=== PATIENT | female | born 1940 | race Caucasian/White ===

== ENCOUNTER → 2016-07-28 | Outpatient (CLI) | payer MEDICARE, MEDICAID ==
[~2016-07-28] MED LIST: /CIPR75TA OR; /WARF4TA OR; ACET-71 PO; ACET65TA OR; ALOE PO; ASCO500T PO; ASPE10LO TOP; ASPI325T OR; ASPI81TA31 OR; ASPI81TA85 PO; BEN1.4DI TOP; BONIVA PO; CALC600T7 PO; CALCIUM CITRATE PO; CHLO125TA PO; CIPR500T3 PO; CIPR500T89 PO; COLA100C PO; D 501TAB PO; DIGO0.12 PO; DIOV40TA PO; FLAG500T OR; FOSA70TA PO; FURO20TA2 PO; HYDR1TAB97 PO; HYDR25TA6 OR; HYDR25TAB PO; IMOD2TAB14 PO; KLOR1TAB69 PO; LASI20TA PO; LEVA750T PO; LEVO25TA2 OR; LEVO75TA2 OR; LEVO75TA4 PO; LIPI20TA OR; LISI10TA4 OR; LISI2.5T OR; LISI40TAB PO; LOPR50TA OR; METO-209 PO; METO100T PO; METO25TA74 PO; METO25TAB PO; METOPROLOL TARTRATE OR; MULTCAP PO; MULTIVIT PO; NITETAB PO; NITR0.1S TOP; NITR0.4S SL; NORV5TAB PO; PERCOCET PO; POTA10CA PO; PRIL40CA PO; PROB1TAB PO; RANI150C OR; SIMV10TA2 OR; SIMV20TA2 PO; SIMV40TA2 PO; SODI1TA PO; SODI1TAB6 PO; SUPECAP24 PO; TOPR100T OR; TYLENOL #3 OR; VALS1TAB49 PO; VIT D 2000 OR; VIT D 2000 PO; VITA100066 PO; VITA500019 PO; VITACAP9 PO; VITAMIN D OR; VITAMIN D PO; VITMTA PO; XARE15TA PO; ZOFR4TAB3 PO; [UNRECOGNIZED DRUG - OTHER] TOP; bengay cream TOP
[2016-07-28 18:13] LABS: BASO % 0.3 % (0.0-1.0); EOS # 0.1 K/mm3 (0.0-0.50); EOS % 0.9 % (0.0-3.0); LARGE UNSTAINED CELL # 0.1 K/mm3 (0.0-0.4); LARGE UNSTAINED CELL % 1.8 % (0.0-4.0); LYMPH # 0.7 K/mm3 (1.5-4.5); LYMPH % 10.1 % (24.0-44.0); MEAN CORPUSCULAR HEMOGLOBIN 26.5 pg (27.0-33.0); MEAN CORPUSCULAR HGB CONC 33.2 g/dl (32.0-36.5); MEAN CORPUSCULAR VOLUME 79.6 fl (80.0-96.0); MONO # 0.6 K/mm3 (0.0-0.8); MONO % 7.7 % (0.0-5.0); NEUTROPHILS # 5.6 K/mm3 (1.8-7.7); NEUTROPHILS % 79.1 % (36.0-66.0); PLATELET COUNT, AUTOMATED 399 k/mm3 (150-450); RED CELL DISTRIBUTION WIDTH 16.2 % (11.5-14.5); WHITE BLOOD COUNT 7.1 K/mm3 (4.0-10.0)
[2016-07-28 18:20] LABS: ALBUMIN 4.5 GM/DL (3.2-5.2); ALBUMIN/GLOBULIN RATIO 1.36 (1.00-1.93); BILIRUBIN,TOTAL 0.8 MG/DL (0.2-1.0); CALCIUM LEVEL 10.4 MG/DL (8.8-10.2); CREATININE FOR GFR 1.27 MG/DL (0.55-1.02); DIGOXIN LEVEL 0.6 NG/ML (0.5-2.0); GLOMERULAR FILTRATION RATE 43.4 (>39); TOTAL PROTEIN 7.8 GM/DL (6.4-8.2)
== END | disposition home or self-care (01) ==
LOC: M WUC 15:01
PROVIDERS: ATTEND Family Medicine
DX: Z51.81 Encounter for therapeutic drug level monitoring (principal); Z79.899 Other long term (current) drug therapy

== ENCOUNTER → 2016-08-03 | Outpatient (CLI) | payer MEDICARE, MEDICAID ==
--- NOTE | 2016-08-03 17:09 | REP ---
MR BRAIN WITHOUT AND WITH CONTRAST: HISTORY: Lung carcinoma. CONTRAST: ProHance 5 mL. COMPARISON: 07/29/2015 and 05/06/2016. A 2 mm focus of enhancement is present in the right frontal lobe. This is unchanged in size compared to the previous studies. A small area of increased signal intensity on T2 weighted images is present in the left cerebellum. This represents an old lacunar infarction. Areas of increased signal intensity on T2 weighted images are present in the periventricular and subcortical white matter. This represents small vessel ischemic disease. There is no intraparenchymal hemorrhage, acute infarct, or midline shift. The ventricular system and cortical sulci are dilated consistent with mild volume loss. There is no extracerebral collection. The sinuses are clear. Several sebaceous cysts are present in the subgaleal soft-tissue. IMPRESSION: 1. There is a 2 mm focus of enhancement in the right frontal lobe unchanged in size compared to the previous studies. A repeat examination in 3 to 6 months is recommended for further evaluation. 2. 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 3. Small vessel ischemic disease. 4. Mild volume loss. Signed by Rogelio Rodrigez MD 08/04/2016 08:28 A
== END | disposition home or self-care (01) ==
LOC: M RAD 12:24
PROVIDERS: ATTEND Radiology Radiation Oncology
DX: C34.90 Malignant neoplasm of unspecified part of unspecified bronchus or lung (principal); I73.9 Peripheral vascular disease, unspecified; G31.9 Degenerative disease of nervous system, unspecified
CPT/HCPCS: 70553; A9576

== ENCOUNTER → 2016-08-04 | Outpatient (CLI) | payer MEDICARE, MEDICAID ==
[~2016-08-04] MED LIST changes: +HYDR-3713 PO; -HYDR1TAB97 PO; -IMOD2TAB14 PO; +IMOD2TAB16 PO
== END | disposition home or self-care (01) ==
LOC: M ONCR 09:02
PROVIDERS: ATTEND Radiology Radiation Oncology
DX: C34.11 Malignant neoplasm of upper lobe, right bronchus or lung (principal); C79.51 Secondary malignant neoplasm of bone

== ENCOUNTER → 2016-08-18 | Outpatient (CLI) | payer MEDICARE, MEDICAID ==
[~2016-08-18] MED LIST changes: +GASTROGRAFIN SOLUTION 30ML (Q9963) As Ordered ONE; +ISOVUE-370 76% 100ML VIAL (Q9967) As Ordered ONE
--- NOTE | 2016-08-18 13:04 | REP ---
CT of the chest with IV contrast: Comparisons are 05/01/2016 and 06/13 2016. The bilateral pleural effusions on the prior studies are no longer present. There is a 10 mm right lower lobe lung nodule on image 77, obscured previously by by the pleural effusion. There is a 8 mm right lower lobe lung nodule, pleural-based image 76, obscured previously by the pleural effusion. There is a 5 mm right lower lobe lung nodule on image secured previously by the pleural effusion. There is a 7 mm lung nodule posteriorly in the superior segment right upper lobe on image 39. There is chronic linear parenchymal scarring in the right upper lobe, unchanged from the prior studies. There is a 7 mm lung nodule, pleural-based laterally in the left upper lobe on page on image 28. There is a 7 ml pleural-based lung nodule in the anterior segment of the left lower lobe on image 75. There is a 6 mm lung nodule in the anterior segment of the left lower lobe on image 77. There is a pleural-based 9 mm nodule in the lateral segment of the left lower lobe on image 80. There is a 6 mm nodule in the posterior basilar segment of the left lower lobe on image 81. There is no mediastinal, hilar or axillary lymph node enlargement. Thoracic aorta is unremarkable. Cardiac size normal. There is no pericardial effusion. There are no lytic, blastic or destructive skeletal changes. There are old fractures posteriorly in the right fourth, fifth and sixth ribs, unchanged from the prior studies. Signed by Michele Esquivel MD 08/18/2016 12:55 P
--- NOTE | 2016-08-18 13:44 | REP ---
CT study of the abdomen and pelvis without and with IV contrast: With oral contrast. History: Non-small cell lung carcinoma. Comparison CT abdomen study is from January 02, 2016. CT contrast dose: 100 ml of Isovue [address] findings: Preliminary digital hardwood sawyer radiograph demonstrates an unremarkable bowel gas pattern. There are clips in the right upper quadrant. There is a 7 mm noncalcified pulmonary nodule in the left lower lobe which appears to be a new finding compared with the January 02, 2016 study. There are several other nodules bilaterally in the lower lobes consistent with metastases. These are also new. The largest visible nodule on the right measures 9 mm in diameter. There is a small quantity of right pleural fluid posteriorly and medially. No adrenal lesion is seen on either side. The gallbladder is surgically absent with clips in the gallbladder fossa. Pre- and postcontrast images of the liver show no focal hepatic mass lesion. There are granulomatous calcifications scattered in the spleen which is otherwise unremarkable. There is moderate right-sided hydronephrosis with a rounded contour to the ureteropelvic junction consistent with some degree of ureteropelvic junction obstruction. Contrast enhancement is symmetric. Extrarenal pelvis configuration is seen in the left kidney. These findings are unchanged. No periaortic or retroperitoneal mass or adenopathy is seen. No pancreatic lesion is observed. There is left colonic diverticulosis fairly extensively in the sigmoid colon and to a lesser extent the descending colon. No evidence of diverticulitis is seen. The patient status post hysterectomy. There urinary bladder is unremarkable. No abdominal wall defect is seen. Bone window settings shows a new zone of sclerosis affecting the pedicle on the right side of the L1 vertebral body. This is a change from the comparison study of December 2015. There is an ill-defined area of sclerosis in the posterior aspect of the iliac bone on the right. This appears more extensive. There are some similar but less pronounced changes on the left. On the left, these changes are status quo. No radiolucent bony destructive lesion is seen. Impression: 1. There is a new area of sclerosis affecting the right sided pedicle at L1 which could be the result of metastasis, possibly treated since it is sclerotic. 2. There are multiple bilateral lower lobe new pulmonary nodules consistent with pulmonary metastases. 3. No other intra-abdominal mass or adenopathy seen. Signed by Brain Lancaster MD 08/18/2016 06:36 P
== END | disposition home or self-care (01) ==
LOC: M RAD 09:33
PROVIDERS: ATTEND Internal Medicine Medical Oncology
DX: C34.90 Malignant neoplasm of unspecified part of unspecified bronchus or lung (principal); R91.8 Other nonspecific abnormal finding of lung field
CPT/HCPCS: 71260; 74178; Q9963; Q9967

== ENCOUNTER → 2016-08-20 | Outpatient (REF) | payer MEDICARE, MEDICAID ==
[~2016-08-20] MED LIST changes: -GASTROGRAFIN SOLUTION 30ML (Q9963) As Ordered ONE; -ISOVUE-370 76% 100ML VIAL (Q9967) As Ordered ONE
== END | disposition home or self-care (01) ==
LOC: M LAB REF 12:19
PROVIDERS: ATTEND Internal Medicine Medical Oncology
DX: C34.90 Malignant neoplasm of unspecified part of unspecified bronchus or lung (principal)

== ENCOUNTER → 2016-08-25 | Outpatient (REF) | payer MEDICARE, MEDICAID | END | disposition home or self-care (01) | LOC: M LAB REF 17:07 | PROVIDERS: ATTEND Internal Medicine Medical Oncology | DX: C34.90 Malignant neoplasm of unspecified part of unspecified bronchus or lung (principal); Z79.899 Other long term (current) drug therapy ==

== ENCOUNTER → 2016-09-09 | Outpatient (REF) | payer MEDICARE, MEDICAID | END | disposition home or self-care (01) | LOC: M LAB REF 17:16 | PROVIDERS: ATTEND Internal Medicine Medical Oncology | DX: C34.90 Malignant neoplasm of unspecified part of unspecified bronchus or lung (principal); Z79.899 Other long term (current) drug therapy ==

== ENCOUNTER → 2016-09-23 | Outpatient (REF) | payer MEDICARE, MEDICAID | LOC: M LAB REF 16:18 | PROVIDERS: ATTEND Internal Medicine Medical Oncology | DX: C34.90 Malignant neoplasm of unspecified part of unspecified bronchus or lung (principal); Z79.899 Other long term (current) drug therapy ==

== ENCOUNTER → 2016-10-14 | Outpatient (REF) | payer MEDICARE, MEDICAID | LOC: M LAB REF 16:34 | PROVIDERS: ATTEND Internal Medicine Medical Oncology | DX: C34.90 Malignant neoplasm of unspecified part of unspecified bronchus or lung (principal); Z79.899 Other long term (current) drug therapy ==

== ENCOUNTER → 2016-10-26 | Outpatient (CLI) | payer MEDICARE, MEDICAID ==
[~2016-10-26] MED LIST changes: -COLA100C PO; +COLA100C3 PO; +ISOVUE-370 76% 100ML VIAL (Q9967) As Ordered ONE
--- NOTE | 2016-10-26 13:16 | REP ---
CT of the chest with IV contrast for stage IV non-small cell lung carcinoma, restaging: Comparison is the most recent prior study dated 08/18/2016. There is a small calcified granuloma within a focal zone of linear scarring in the right upper lobe on image 29, unchanged. Posterior to this and slightly inferior there are multiple nodules in the superior segment of the right lower lobe spanning images 31 - 43, increased in number from the prior study. The largest is on on image 38 measuring 2.2 cm, 0.7 cm previously. There is a 7 mm pleural-based nodule posteriorly in the right lung on image 43, not present previously. There is a 5 mm nodule along the major fissure on the right on image 50 measuring 5 mm, 3 mm previously. There is a 4 mm nodule in the right middle lobe on image 49, 3 mm previously. There are three a tiny pleural-based nodular densities laterally in the right hemithorax on image 52, not present previously. There is a 4 mm right lower lobe nodule on image 54, not present previously. There is a 9 mm pleural-based right lower lobe nodule posteriorly on image 56, not present previously. There is a 6 mm right lower lobe nodule on image 59, not present previously. There is 8 mm nodule in the right lower lobe on image 71, not present previously. There is a pleural-based right lower lobe nodule measuring 18 mm on image 73, 8 mm previously. There is a 19 mm nodule in the right lower lobe on image 77, 10 mm previously. There is a 10 mm nodule in the right lower lobe on image 78, 5 mm previously. There is atelectasis of the medial basilar segment right lower lobe. This is unchanged. At the lateral margin of this atelectasis. There is a 16 mm nodule with calcifications, this measured 10 mm previously. There is a 8 mm nodule in the deep sulcus of the right lung on image 84 , 5 mm previously. There is a 13 mm nodule in the deep sulcus of the right lung medially on image 84, not present previously. There is a 4 ml pleural-based nodule in the left upper lobe on image 19, not present previously. There is a 8 mm nodule laterally in the left upper lobe on image 22, not present previously. There is a 10 ml lung nodule, pleural-based laterally in the left upper lobe on page 25, 7 mm previously. There is a 6 ml pleural-based lung nodule laterally in the left upper lobe on image 30, not present previously. There is a 7 mm pleural-based lung nodule posterolaterally in the left upper lobe on image 34, not present previously. There is a 5 mm nodule anterolaterally in the left upper lobe on image 41, not present previously. There is a 6 ml lung nodule anteriorly in the left upper lobe on image 44, not present previously. There are two tiny pleural-based lung nodules laterally in the left upper lobe on page 48, slightly larger than previously. There is a tiny pleural-based lung nodule laterally in the left upper lobe on page 53, not present previously. There is a 5 mm pleural-based lung nodule posteriorly in the left lower lobe on image 55. This is 2 mm previously. There is a 7 mm pleural-based lung nodule laterally in the left lower lobe on image 57, 4 mm previously. There are multiple other lung nodules in the left lower lobe inferiorly mostly pleural-based, some of them confluent, increased in number and size from the prior study. There is an enlarged aorticopulmonic window mediastinal node measuring 11 mm (8 mm previously. There is no other mediastinal lymph node enlargement. No hilar lymph node enlargement. No axillary lymph node enlargement. Upper abdomen: There is no adrenal mass. There is surgical clips in the gallbladder fossa. I suspect there is right hydronephrosis. This is unchanged. Old right rib fractures are again noted. No lytic, blastic or destructive skeletal changes are identified. There is advanced degenerative disc disease in the mid thoracic spine, unchanged. There is an indwelling central venous catheter with the tip in the superior vena cava in satisfactory location, unchanged. Impression: Multiple lung nodules bilaterally. The nodules have increased in number and many have increased in size. There is an enlarged aorticopulmonic mediastinal node that has increased in size. There appears to be chronic atelectasis in the medial basilar segment of the right lower lobe, unchanged. There appears to be a nodule at the periphery of this atelectasis containing calcifications. I suspect there is right hydronephrosis. This appears to be unchanged. This is also unchanged from a CT of the abdomen pelvis dated 01/02/2016 and may be secondary to a right ureteral UPJ stricture. Signed by Michele Esquivel MD 10/26/2016 01:07 P
== END ==
LOC: M RAD 11:13
PROVIDERS: ATTEND Internal Medicine Medical Oncology
DX: C34.90 Malignant neoplasm of unspecified part of unspecified bronchus or lung (principal); J98.11 Atelectasis
CPT/HCPCS: 71260; Q9967

== ENCOUNTER → 2016-11-24 | Outpatient (CLI) | payer MEDICARE, MEDICAID ==
[~2016-11-24] MED LIST changes: -ISOVUE-370 76% 100ML VIAL (Q9967) As Ordered ONE
--- NOTE | 2016-11-24 12:07 | RADONC ---
RADIATION ONCOLOGY FOLLOWUP NOTE: DATE OF SERVICE: 11/24/2016 CHART NO: [id number] DIAGNOSIS: Lung cancer. STAGE: Stage IV. ECOG PERFORMANCE STATUS: 1 Ms. García is a very pleasant 76-year-old white female with the diagnosis of widely metastatic adenocarcinoma of the lung who is presenting to us today for routine followup visit almost 1 year post completion of palliative radiation therapy for spinal metastasis. The patient presents today reporting that generally she is doing well. She is presently receiving systemic therapy with Dr. Adamson and will be undergoing a series of workup for evaluation of progress once completed. The patient presents telling me that her back pain is markedly improved and has remained stable. The pain is no where near as intense as it was prior to treatment. She has no other areas of bone pain. She has no other complaints related to her radiation therapy or disease other than weakness. REVIEW OF SYSTEMS: The patient's review of systems is positive for some continued low grade L1 area back pain as well as weakness and fatigue but is otherwise generally noncontributory. She denies nausea, vomiting, fevers, chills, night sweats, diplopia, headaches, anxiety or depression, anorexia, weight loss, visual disturbances, chest pain, urinary or bowel difficulties, bone pain, or neurological problems. PHYSICAL EXAMINATION: The patient is a well-developed, well-nourished female in no acute distress. HEENT exam is normocephalic, atraumatic. Extraocular movements are intact. There is no palpable cervical, supraclavicular, infraclavicular, axillary, or inguinal lymphadenopathy present. Lungs are clear to auscultation and percussion. Heart has a regular rate and rhythm. Abdomen is benign with no hepatosplenomegaly, masses, or tenderness. Skeletal examination reveals some acute tenderness present over the L1 region of the spine but otherwise there is no tenderness to pressure percussion of the bony skeleton. Extremities reveal no clubbing, cyanosis, or edema. Neurologic exam is grossly intact, as is the remainder of the physical examination. ASSESSMENT: The patient is clinically stable at this point. I have scheduled her for routine followup in our office in six months' time. She will continue his systemic treatment with her medical oncologist, Dr. Adamson. In the meantime, further CT scans will be ordered upon completion of that therapy. cc: MD Joaquim Roberts MD
== END ==
LOC: M ONCR 11:00
PROVIDERS: ATTEND Radiology Radiation Oncology
DX: C34.11 Malignant neoplasm of upper lobe, right bronchus or lung (principal); C79.51 Secondary malignant neoplasm of bone

== ENCOUNTER → 2016-11-29 | Outpatient (REF) | payer MEDICARE, MEDICAID | LOC: M LAB REF 17:05 | PROVIDERS: ATTEND Internal Medicine Medical Oncology | DX: C34.90 Malignant neoplasm of unspecified part of unspecified bronchus or lung (principal); Z79.899 Other long term (current) drug therapy ==

== ENCOUNTER 2016-12-05 12:17 | Inpatient (IN) | payer MEDICARE, MEDICAID ==
[~2016-12-05] VITALS: Ht 154.9 cm; Wt 55.4 kg
[2016-12-05] MEDS ORDERED: PROC5TA PO (12:32)
[2016-12-05] MEDS ORDERED: METOPROLOL 5 MG/5 ML VIAL IV STA ×2 (13:09→14:22)
[2016-12-05] MEDS ORDERED: IPRATROPIUM 0.5MG/ALBUTEROL 2.5MG INH SOL UD 3ML (DUONEB)(J7620) NEB ONE (13:15)
[2016-12-05 13:48] LABS: BASO % 0.3 % (0.0-1.0); EOS # 0.1 K/mm3 (0.0-0.50); EOS % 1.6 % (0.0-3.0); LARGE UNSTAINED CELL # 0.1 K/mm3 (0.0-0.4); LARGE UNSTAINED CELL % 0.9 % (0.0-4.0); LYMPH # 0.4 K/mm3 (1.5-4.5); LYMPH % 3.8 % (24.0-44.0); MEAN CORPUSCULAR HEMOGLOBIN 29.4 pg (27.0-33.0); MEAN CORPUSCULAR HGB CONC 32.9 g/dl (32.0-36.5); MEAN CORPUSCULAR VOLUME 89.2 fl (80.0-96.0); MONO # 0.5 K/mm3 (0.0-0.8); MONO % 5.8 % (0.0-5.0); NEUTROPHILS # 7.8 K/mm3 (1.8-7.7); NEUTROPHILS % 87.6 % (36.0-66.0); PLATELET COUNT, AUTOMATED 590 k/mm3 (150-450); RED CELL DISTRIBUTION WIDTH 13.9 % (11.5-14.5); WHITE BLOOD COUNT 8.9 K/mm3 (4.0-10.0)
[2016-12-05 13:56] LABS: INR 1.38
[2016-12-05 14:07] LABS: VENOUS BASE EXCESS -1.7 (-2.0-2.0); VENOUS O2 SATURATION 83.2 % (60.0-80.0); VENOUS PARTIAL PRESSURE CO2 37.6 mmHg (38.0-50.0); VENOUS PARTIAL PRESSURE O2 52.4 mmHg (30.0-50.0); VENOUS STANDARD HCO3 22.8 MEQ/L; VENOUS TOTAL CO2 23.9 MEQ/L (24.0-28.0)
--- NOTE | 2016-12-05 14:07 | REP ---
CHEST, TWO VIEWS: Two views of the chest are performed and compared to prior CT of 10/26/2016 and chest radiographs of 06/16/2016. There is increased right pleural fluid and basilar infiltrate/atelectasis. Confluent nodular opacities are seen laterally at the left base. Right suprahilar nodular opacity is seen as on CT exam. There is calcification and tortuosity of the thoracic aorta. Right MediPort catheter is seen. Tip is in the superior vena cava. There are degenerative changes of the spine. IMPRESSION: Increased right pleural effusion with basilar atelectasis/infiltrate. Signed by Michele Roman MD 12/05/2016 07:57 P
[2016-12-05 14:09] LABS: ALBUMIN 2.9 GM/DL (3.2-5.2); ALBUMIN/GLOBULIN RATIO 0.85 (1.00-1.93); BILIRUBIN,DIRECT 0.3 MG/DL (0.0-0.2); BILIRUBIN,TOTAL 0.7 MG/DL (0.2-1.0); TOTAL PROTEIN 6.3 GM/DL (6.4-8.2)
[2016-12-05 14:10] LABS: ANION GAP 13 MEQ/L (8-16); BLOOD UREA NITROGEN 12 MG/DL (7-18); CARBON DIOXIDE LEVEL 26 MEQ/L (21-32); CHLORIDE LEVEL 97 MEQ/L (98-107); CREATININE FOR GFR 0.79 MG/DL (0.55-1.02); GLOMERULAR FILTRATION RATE > 60.0 (>39); GLUCOSE, FASTING 97 MG/DL (83-110); POTASSIUM SERUM 3.8 MEQ/L (3.5-5.1); SODIUM LEVEL 136 MEQ/L (136-145)
[2016-12-05] MEDS ORDERED: ACETAMINOPHEN TAB 650MG DOSE (2X325MG) PO PRN (15:00)
[2016-12-05] MEDS ORDERED: FURO20TA2 PO (15:18)
[2016-12-05] MEDS ORDERED: NITR0.1S SL (15:18)
[2016-12-05] MEDS ORDERED: POTA20TA PO (15:18)
[2016-12-05] MEDS ORDERED: OMEP40CA2 PO (15:18)
[2016-12-05] MEDS ORDERED: METO-209 PO (15:18)
[2016-12-05] MEDS ORDERED: ONDANSETRON 4 MG ORAL DISINTEGRATING TAB (S0181) PO PRN (15:30)
[2016-12-05] MEDS ORDERED: GASTROGRAFIN SOLUTION 30ML (Q9963) As Ordered ONE (15:30)
[2016-12-05] MEDS ORDERED: GASTROGRAFIN SOLUTION 30ML (Q9963) PO ONE ×2 (15:45→16:15)
--- NOTE | 2016-12-05 16:16 | HPE ---
DATE OF ADMISSION: 12/05/2016 PRIMARY CARE PROVIDER: Dr. 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 Patient stated for the past few weeks she has been getting more tired and since last she started having more difficulty breathing, especially during exertion. Patient noted to have nonproductive cough. Patient's caregiver, the son, noticed patient has increased weight in the last month. In the last few days, patient has a very sensitive stomach, is tender to palpation, and patient was noted to have approximately two episodes of diarrhea-like bowel movements. Patient has history of stage IV adenocarcinoma of the lung with metastases. Patient has been following with Dr. Marina Adamson in the outpatient setting. Patient just finished her chemotherapy last week and patient was scheduled to have a repeat CT scan to evaluate the effect of the chemotherapy. Patient has a history of a wedge resection in August [address] Rob. PAST MEDICAL HISTORY: 1. Stage IV adenocarcinoma of the lung with metastases. 2. Hypertension. 3. Hypothyroidism. 4. Atrial fibrillation. 5. Systolic congestive heart failure. 6. Syndrome of inappropriate secretion of antidiuretic hormone (SIADH). PAST SURGICAL HISTORY: 1. Wedge resection in August 2015. 2. Cholecystectomy. 3. Hysterectomy. ALLERGIES: No known drug allergies. HOME MEDICATIONS: - acetaminophen/hydrocodone 5/325 one tablet by mouth three times a day - ascorbic acid 1000 mg by mouth daily - vitamin D 5000 units by mouth daily - Lasix 20 mg by mouth twice a day - Synthroid 75 mcg by mouth daily - metoprolol succinate 100 mg by mouth twice a day - nitroglycerin 0.4 mg sublingual as needed - omeprazole 40 mg by mouth daily - Zofran 4 mg by mouth as needed - potassium chloride 20 mEq by mouth twice a day - prochlorperazine 10 mg by mouth as needed for nausea and vomiting - Xarelto 15 mg by mouth every evening - simvastatin 20 mg by mouth nightly - sodium chloride 1 gram by mouth daily SOCIAL HISTORY: Patient used to smoke one pack per week, quit in the 1970s. Denies alcohol use. Denies oral recreational drug use. Patient is a FULL CODE. REVIEW OF SYSTEMS: GENERAL: No fever, no chills. HEENT: No vision changes, no auditory changes. CARDIOVASCULAR: No chest pain. Currently patient has atrial fibrillation, patient does experience palpitations. RESPIRATORY: Increased shortness of breath during exertion in the last few days but symptoms since a few weeks ago. Nonproductive cough. No wheezes. Patient has stage IV adenocarcinoma of the lung with metastases. GASTROINTESTINAL (GI): Abdominal tenderness of the right abdomen with loose stool. MUSCULOSKELETAL: Patient has bony metastases from the lung cancer. Patient is on chronic pain medications. NEUROLOGICAL: No numbness, no tingling. OBJECTIVE: VITAL SIGNS: Temperature 97.3, pulse 152, respirations 18, blood pressure 90/72, pulse oximetry 94% in room air. GENERAL: Fatigued. No sign of acute distress. Alert and oriented times three. HEENT: Normocephalic, atraumatic. Extraocular motors grossly intact. CARDIOVASCULAR: Irregularly irregular. Patient's heart rate is approximately 120-150. Positive systolic murmur. RESPIRATORY: Positive crackles, mainly on the right mid and lower lung. No wheezes appreciated. ABDOMEN: Tenderness to palpation in the right mid abdomen with rebound. Abdomen is soft. Bowel sounds present. EXTREMITIES: Positive edema bilaterally. No sign of cyanosis. LABORATORY DATA: WBC 8.9, hemoglobin 10.3, hematocrit 31.3, platelet count 590. Sodium 136, potassium 3.8, chloride 97, carbon dioxide 26, BUN 12, creatinine 0.79, GFR greater than 60, fasting glucose 97, lactic acid 1.4, total bilirubin 0.7, direct bilirubin 0.3, AST 15, ALT 19, alkaline phosphatase 118, total protein 6.3, albumin 2.9. PT is 17.1, INR is 1.38. Chest xray shows increased right pleural effusion with basilar atelectasis/infiltrate. ASSESSMENT AND PLAN: 1. Acute respiratory distress. Patient will be admitted to the progressive care unit (PCU) under inpatient status. Patient shows signs of fluid overload. Patient will start a trial of IV Lasix with holding parameter. Will monitor intake and output and daily weight. Patient's acute respiratory distress is most likely secondary to congestive heart failure (CHF) exacerbation. 2. Abdominal pain with diarrhea. Will follow with gastrointestinal (GI) panel. Will obtain CT of abdomen. 3. Atrial fibrillation due to current respiratory symptoms, but patient has a controlled heart rate. IV metoprolol was given in the emergency department (ED). Will continue to monitor and adjust the patient's heart rate medication. Patient did have two episodes of hypotension and patient may need digoxin if beta tila or calcium channel tila cannot be given due to the hypotension. Patient is continued on Xarelto. 4. History of stage IV adenocarcinoma of the lung with bone metastases and possible brain metastases. Patient has been following with Dr. Marina Adamson in the outpatient setting and patient just finished a course of chemotherapy. 5. Syndrome of inappropriate secretion of antidiuretic hormone (SIADH). Patient is on salt tablet. Currently sodium is within normal range. 6. Hypothyroidism. Will follow thyroid stimulating hormone (TSH). 7. Deep venous thrombosis (DVT) prophylaxis. Patient is on Xarelto.
[2016-12-05] MEDS ORDERED: ISOVUE-370 76% 100ML VIAL (Q9967) As Ordered ONE (16:47)
[2016-12-05] MEDS: ASCORBIC ACID 500 MG TAB PO SCH (17:58)
[2016-12-05] MEDS: NORCO, ANEXSIA 5/325MG TABLET (HYDROcodone/ACETAMINOPHEN) PO SCH ×2 (17:58→20:42)
[2016-12-05 18:00] VITALS: BP 118/74
--- NOTE | 2016-12-05 18:00 | REPUSA ---
CLINICAL HISTORY: Abdominal pain. TECHNIQUE: Multiple axial, sagittal and coronal CT images were obtained through the abdomen and pelvi s after administration of oral and intravenous contrast material. Images were obtained before and aft er IV contrast administration. COMMENTS: The liver is of uniform attenuation without mass or defect. There is no intra or extrahepatic biliary ductal dilatation. The spleen is normal. The gallbladder is within normal limits. The pancreas is of normal contour and attenuation characteristics. There is no evidence of adrenal mass. Both kidneys demonstrate prompt and equal nephrograms. The kidneys are normal in size, shape and conf iguration. There is no evidence of renal or ureteral mass. No renal or ureteral calculi are identifie d. Large right extra-renal pelvis vs UPJ obstruction is seen. No evidence for appendicitis. There is wall thickening noted involving rectosigmoid compatible with proctocolitis. Scattered sigmoid diverticula are noted. . No evidence for small or large bowel obstru ction. There is no evidence of abdominal ascites or lymphadenopathy. There is no evidence of intrinsic or extrinsic bladder mass. There is no pelvic ascites or lymphadeno juanito. S/p complete hysterectomy. Images of the lung bases show no evidence of pleural or parenchymal mass. Large right pleural effusio n. Bibasilar mass-like pleural based consolidations are noted. The bony structures are free of lytic or blastic lesions. Multilevel degenerative changes are seen in volving the thoracolumbar spine. Scattered calcifications are seen involving the aorta and major bran ches compatible with atherosclerosis. IMPRESSION: Large right extra-renal pelvis vs UPJ obstruction is seen. There is wall thickening noted involving rectosigmoid compatible with proctocolitis. Scattered sigmoi d diverticula are noted. Large right pleural effusion. Bibasilar mass-like pleural based consolidations are noted. Thank you for your kind referral of this patient.
[2016-12-05] MEDS: RIVAROXABAN 15 MG TAB (XARELTO) PO SCH (18:24)
[2016-12-05 19:41] VITALS: BP 122/57
[2016-12-05] MEDS: METOPROLOL SUCC (TopROL XL) 100MG *XL* TAB PO SCH (20:41)
[2016-12-05] MEDS: SIMVASTATIN 20 MG TAB PO SCH (20:42)
[2016-12-05] MEDS: FUROSEMIDE 40 MG/4 ML VIAL (J1940) IV SCH (20:42)
[2016-12-05] MEDS ORDERED: SLF 3 ML SYR IV PRN (23:15)
[2016-12-05 23:40] VITALS: BP 101/62
[2016-12-06] VITALS (10 sets, daily range): BP systolic 90–135; BP diastolic 56–88
[2016-12-06 05:16] LABS: MEAN CORPUSCULAR HEMOGLOBIN 30.1 pg (27.0-33.0); MEAN CORPUSCULAR HGB CONC 33.6 g/dl (32.0-36.5); MEAN CORPUSCULAR VOLUME 89.6 fl (80.0-96.0); WHITE BLOOD COUNT 8.6 K/mm3 (4.0-10.0)
[2016-12-06] MEDS ORDERED: SODIUM CHLORIDE 0.9% INJ 10 ML SYR IV PRN (05:30)
[2016-12-06 05:42] LABS: ALBUMIN 2.8 GM/DL (3.2-5.2); ALBUMIN/GLOBULIN RATIO 0.64 (1.00-1.93); ALKALINE PHOSPHATASE 116 U/L (45-117); ALT/SGPT 18 U/L (12-78); ANION GAP 12 MEQ/L (8-16); AST/SGOT 16 U/L (15-37); BILIRUBIN,DIRECT 0.3 MG/DL (0.0-0.2); BILIRUBIN,TOTAL 0.8 MG/DL (0.2-1.0); BLOOD UREA NITROGEN 12 MG/DL (7-18); CALCIUM LEVEL 9.2 MG/DL (8.8-10.2); CARBON DIOXIDE LEVEL 27 MEQ/L (21-32); CHLORIDE LEVEL 94 MEQ/L (98-107); CREATININE FOR GFR 0.84 MG/DL (0.55-1.02); GLOMERULAR FILTRATION RATE > 60.0 (>39); GLUCOSE, FASTING 76 MG/DL (83-110); POTASSIUM SERUM 3.2 MEQ/L (3.5-5.1); SODIUM LEVEL 133 MEQ/L (136-145); TOTAL PROTEIN 7.2 GM/DL (6.4-8.2)
[2016-12-06] MEDS: LEVOTHYROXINE 0.075 MG TAB (75 MCG) PO SCH (06:09)
[2016-12-06] MEDS: SLF 3 ML SYR IV SCH ×3 (06:10→21:29)
[2016-12-06] MEDS: FUROSEMIDE 40 MG/4 ML VIAL (J1940) IV SCH (06:10)
[2016-12-06] MEDS ORDERED: POTASSIUM CHLORIDE 10 MEQ SR TABLET PO ONE ×2 (06:15→07:30)
[2016-12-06 06:32] LABS: MAGNESIUM LEVEL 1.9 MG/DL (1.8-2.4)
[2016-12-06] MEDS: NORCO, ANEXSIA 5/325MG TABLET (HYDROcodone/ACETAMINOPHEN) PO SCH ×3 (08:54→21:29)
[2016-12-06] MEDS: SODIUM CHLORIDE 1 GM TAB PO SCH (08:55)
[2016-12-06] MEDS: ASCORBIC ACID 500 MG TAB PO SCH (08:55)
[2016-12-06] MEDS: OMEPRAZOLE 20 MG CAP PO SCH (08:55)
[2016-12-06] MEDS: SODIUM CHLORIDE 0.9% INJ 10 ML SYR IV SCH (08:59)
[2016-12-06] MEDS: METOPROLOL SUCC (TopROL XL) 100MG *XL* TAB PO SCH (09:00)
[2016-12-06] MEDS ORDERED: SODIUM CHLORIDE 0.9% INJ 10 ML SYR IV SCH (09:00)
[2016-12-06] MEDS ORDERED: SODIUM CHLORIDE 0.9% 1000 ML IV ONE (09:15)
[2016-12-06] MEDS ORDERED: NS 500 ML IV ONE ×2 (11:00→12:00)
[2016-12-06] MEDS ORDERED: DIGOXIN INJ 0.5 MG/2 ML AMP (J1160) IV STA (12:26)
[2016-12-06] MEDS: METOPROLOL SUCC (TopROL XL) 50MG **XL** TAB PO SCH ×2 (12:45→21:28)
[2016-12-06] MEDS: SODIUM CHLORIDE 0.9% INJ 10 ML SYR IV PRN ×2 (12:46→18:08)
--- NOTE | 2016-12-06 14:24 | ECGEPIP ---
Stationary ECG Study [facility] Test Date: 2016-12-06 Pat Name: SERGE MCGINNIS Department: Room: [place] [address] Gender: F Microphone Operator: : [id number] Requested By: SELENE ESPINOZA Order Number: [id number] Reading MD: Margaret Bowling Measurements Intervals [place] Rate: 123 P: AK: 0 QRS: 39 QRSD: 85 T: 21 QT: 318 QTc: 456 Interpretive Statements ATRIAL FIBRILLATION WITH RAPID VENTRICULAR RESPONSE VOLTAGE CRITERIA FOR LVH, CONSIDER NORMAL VARIANT NONSPECIFIC ST & T-WAVE ABNORMALITY ABNORMAL RHYTHM ECG rate FASTER C/W 06/19/16 Electronically Signed On 12-06-2016 14:24:29 EDT by Margaret Bowling
[2016-12-06] MEDS ORDERED: METOPROLOL SUCC *XL* 25MG TAB (TopROL *XL*) PO ONE (14:45)
--- NOTE | 2016-12-06 14:53 | IPNPDOC ---
Text Note Date of Service The patient was seen on 12/06/16. NOTE Subjective: Patient is a 76 year old female with a PMHx of HTN, Hypothyroidism, Atrial fibrillation, Systolic CHF, SAIDH and Adenocarcinoma of Lung (Stage IV) who presented to the ER complaints of shortness of breath. Patient was found to be in a.fib with RVR and acute decompensated CHF. Patient received metoprolol IV and lasix and was admitted to telemetry. Patient was found to have hypotension this morning and in a.fib with RVR. She remained asymptomatic. She had no signs of fluid overload at this time and was given a 1 liter bolus of NS. She was started on digoxin loading dose. Patient was seen and examined at the bedside. Currently she reports her breathing has improved. She denies any other problems at this time. Denies chest pain or palpitations. Objective: Vitals (See below) General: Lying in bed, no acute distress, comfortable, AAOx3 HEENT: NC, AT, No JVD CVS: Irregularly irregular, +S1S2 Lungs: Fair air entry b/l, no crackles appreciated Abdomen: Soft, ND, NT, +BSx4 Extremities: +PPx4, No pitting edema noted, - Calf tenderness Assessment and plan: 1. s/p Acute respiratory distress - likely 2/2 decompensated systolic heart failure and atrial fibrillation with RVR, possibly 2/2 pleural effusion - Presented with SOB - Physical initially revealed signs of fluid overload; JVD, crackles and LE edema; currently they have all resolved - BNP elevated and CXR with large R pleural effusion - CXR 12/05: increased right pleural effusion with basilar atelectasis/infiltrate - CT abdomen 12/05: large right pleural effusion, bibasilar mass-like pleural based consolidations are noted - s/p Lasix 40 IV x 2 doses 2. Atrial fibrillation with RVR - Patient was found to have a.fib with RVR in ER and received metoprolol IV in the ER that she responded to - This morning her BP was SBP 90s, but remained asymptomatic - Physical revealed no signs of fluid overload - s/p 1 Liter NS - She was loaded with Digoxin (250mcg IV, then 250mcg [id number] PO x3, followed by 125mcg PO daily) - Will c/w rate control with metoprolol at an adjusted dose of 25mg BID ( holding parameter of SBP < 100) - c/w anticoagulation with Xarelto - Case discussed with Dr. Solano 3. Diarrhea; s/p abdominal pain - Patient noted that she had abdominal pain yesterday - Physical today reveals a benign abdomen, no tenderness / rigidity / rebound - No leukocytosis, no fever - CT abdomen 12/05: large right extra-renal pelvis, vs UPJ obstruction is seen, thickening of rectosigmoid (possible proctocolitis), scattered sigmoid diverticula - Will get GI panel - Hold off on antibiotics at this time 4. Lung adenocarcinoma (Stage IV) - Possible metastasis to brain - Follow with Dr. Marina Adamson 5. SIADH - c/w Salt tabs 6. Hypothyroidism - c/w Levothyroidism 7. DVT - on full anticoagulation with Xarelto VS,Fishbone, I+O VS, Fishbone, I+O Laboratory Tests 12/06/16 04:31 Red Blood Count 3.69 L, Mean Corpuscular Volume 89.6, Mean Corpuscular Hemoglobin 30.1, Mean Corpuscular Hemoglobin Concent 33.6, Red Cell Distribution Width 14.0 Vital Signs Date Time Temp Pulse Resp B/P (MAP) Pulse Ox O2 Delivery O2 Flow Rate FiO2 12/06/16 12:46 129 135/88 (104) 12/06/16 08:00 98.4 18 98 Room Air I&O- Last 24 Hours up to 6 AM 12/06/16 06:00 Intake Total 560 ml Output Total 1325 ml Balance -765 ml SELENE ESPINOZA MD December 06, 2016 14:53
[2016-12-06] MEDS: DIGOXIN 0.25 MG TAB PO SCH ×2 (17:34→23:54)
[2016-12-06] MEDS: RIVAROXABAN 15 MG TAB (XARELTO) PO SCH (17:34)
[2016-12-06] MEDS ORDERED: LIDOCAINE 5% (LIDODERM) PATCH TD ONE (18:00)
--- NOTE | 2016-12-06 20:55 | ECGEPIP ---
Stationary ECG Study [facility] - ED Test Date: 2016-12-05 Pat Name: SERGE MCGINNIS Department: Room: - Gender: F [employer]: santi : 1940 Requested By: BHARGAVI DUNN Order Number: [id number] Reading MD: Dyan Esteban Measurements Intervals [place] Rate: 133 P: VA: 0 QRS: 11 QRSD: 85 T: -15 QT: 319 QTc: 476 Interpretive Statements ATRIAL FIBRILLATION WITH RAPID VENTRICULAR RESPONSE NONSPECIFIC ST & T-WAVE ABNORMALITY ABNORMAL RHYTHM ECG CW 06/19/16 - RATE INCREASED NONSPECIFIC ST T WAVE CHANGES IN INFEROLATERAL LEADS Electronically Signed On 12-06-2016 20:54:59 EDT by Dyan Esteban
[2016-12-06] MEDS: SIMVASTATIN 20 MG TAB PO SCH (21:29)
[2016-12-07] VITALS (7 sets, daily range): BP systolic 117–140; BP diastolic 57–73
[2016-12-07] MEDS: DIGOXIN 0.25 MG TAB PO SCH (05:52)
[2016-12-07] MEDS: LEVOTHYROXINE 0.075 MG TAB (75 MCG) PO SCH (05:52)
[2016-12-07] MEDS: SLF 3 ML SYR IV SCH ×3 (05:53→20:41)
[2016-12-07] MEDS ORDERED: **NOTE PATIENT COMMENT** MISC XX ONE (06:00)
[2016-12-07 06:01] LABS: MEAN CORPUSCULAR HGB CONC 33.6 g/dl (32.0-36.5); MEAN CORPUSCULAR VOLUME 92.3 fl (80.0-96.0); RED CELL DISTRIBUTION WIDTH 13.9 % (11.5-14.5); WHITE BLOOD COUNT 7.3 K/mm3 (4.0-10.0)
[2016-12-07 06:42] LABS: ANION GAP 7 MEQ/L (8-16); BLOOD UREA NITROGEN 10 MG/DL (7-18); CALCIUM LEVEL 7.9 MG/DL (8.8-10.2); CARBON DIOXIDE LEVEL 27 MEQ/L (21-32); CHLORIDE LEVEL 101 MEQ/L (98-107); CREATININE FOR GFR 0.69 MG/DL (0.55-1.02); GLOMERULAR FILTRATION RATE > 60.0 (>39); GLUCOSE, FASTING 88 MG/DL (83-110); POTASSIUM SERUM 4.2 MEQ/L (3.5-5.1); SODIUM LEVEL 135 MEQ/L (136-145)
[2016-12-07] MEDS ORDERED: DIGOXIN 0.125 MG TAB PO SCH (09:00)
[2016-12-07] MEDS: ASCORBIC ACID 500 MG TAB PO SCH (09:10)
[2016-12-07] MEDS: NORCO, ANEXSIA 5/325MG TABLET (HYDROcodone/ACETAMINOPHEN) PO SCH ×3 (09:10→20:40)
[2016-12-07] MEDS: SODIUM CHLORIDE 1 GM TAB PO SCH (09:10)
[2016-12-07] MEDS: OMEPRAZOLE 20 MG CAP PO SCH (09:10)
[2016-12-07] MEDS: METOPROLOL SUCC (TopROL XL) 50MG **XL** TAB PO SCH ×2 (09:10→20:40)
[2016-12-07] MEDS: SODIUM CHLORIDE 0.9% INJ 10 ML SYR IV SCH (09:11)
[2016-12-07] MEDS ORDERED: ISOVUE-370 76% 100ML VIAL (Q9967) As Ordered ONE (11:39)
--- NOTE | 2016-12-07 13:06 | REP ---
CT study of the chest with IV contrast: History: Evaluation of underlying cancer. The patient has a history of adenocarcinoma of the lung with mucinous differentiation. There is a history of skeletal metastases. CT contrast dose: 75 ml of intravenous Isovue [address] comparison study: October 26, 2016. CT findings: The significant change when compared with the recent prior chest CT study is that there is a moderate amount of loculated appearing right pleural fluid which has accumulated. There is multifocal enhancing visceral and parietal pleural thickening suggesting metastatic involvement. There are relatively low density mass lesions visible within atelectatic right lower lobe lung parenchyma. The right lower lobe atelectasis is new as well. The masses are not new. There are multiple pulmonary metastatic nodules in the right and left lung which appear to be increased in size significantly in the interval since the CT study done 5 weeks ago. There are no definite new pulmonary nodules although the progression in size is fairly rapid. There are precarinal lymph nodes which are enlarged and which have increased in size as well in the interval since the study done 5 weeks ago. Left precarinal lymph node which previously measured 1.1 cm on 10/26/2016 now measures 1.4 cm. A node adjacent to this to the right of midline now measures 12 mm in short axis dimension, previously 7 mm. There are bilateral hilar lymph nodes which are a little larger as well. There are two or three small anterior mediastinal nodes. Multiple clips are seen post cholecystectomy. There is evidence of right sided hydronephrosis again noted unchanged. There are scattered sclerotic changes in the vertebral column in the thoracic spine. These are unchanged. Impression: 1. Progressive pulmonary metastatic disease. 2. New moderate loculated appearing right pleural effusion with visceral and parietal pleural thickening and enhancement suggesting metastatic pleural involvement. Signed by Brain Lancaster MD 12/07/2016 01:11 P
--- NOTE | 2016-12-07 15:14 | IPNPDOC ---
Subjective Date Seen The patient was seen on 12/07/16. Subjective Chief Complaint/HPI The patient is a 76-year-old female admitted with a reason for visit of Acute Respiratory Disease. General: Denies: Chills, Night Sweats Constitutional: Denies: Chills, Fever Eyes: Denies: Pain, Vision change ENT: Denies: Head Aches, Ear Pain Skin: Denies: Rash, Lesions Pulmonary: Denies: Dyspnea, Cough Cardiovascular: Denies: Chest Pain, Palpitations Gastrointestinal: Denies: Nausea, Vomiting Genitourinary: Denies: Dysuria, Frequency Hematologic: Denies: Bruising, Bleeding Excessively Objective Physical Examination General Exam: Positive: Alert, Cooperative, No Acute Distress ENT Exam: Positive: Atraumatic, Mucous membr. moist/pink Neck Exam: Negative: JVD Chest Exam: Positive: Diminished, Negative: Wheezing Heart Exam: Positive: Irregular Rhythm, Normal S1, Normal S2 Telemetry: Positive: Atrial fibrillation Abdomen Exam: Positive: Soft, Negative: Tenderness Extremity Exam: Negative: Tenderness, Swelling Psych Exam: Positive: Oriented x 3 Assessment /Plan Plan/VTE VTE Prophylaxis Ordered?: Yes Plan s/p Acute respiratory distress of Multifactorial Etiology; Atrial fibrillation with RVR, Decompensated CHF, Underlying Progressive Metastatic Lung Cancer Patient's respiratory status has improved following diuresis on admission Currently Saturating 94-98% on Room Air with no more SOB Appears Volume Compensated at this time We did repeat a CT Scan of the Chest here, and it does reveal progressive pulmonary metastatic disease, and a loculated-appearing right-sided pleural effusion suggestive of metastatic pleural involvement Given the patient's improved respiratory status here, and after discussion with the patient's oncologist Dr. Adamson, we will have the patient follow-up as an outpatient for further delineation of treatment. Atrial fibrillation with RVR, controlled Patient's heart rate much better control today, ranging in the 90s Status post digoxin loading Continue metoprolol, digoxin Continue Xarelto Case was discussed with Dr. Solano by my colleague Dr. [place] Lung adenocarcinoma (Stage IV) CT scan of the chest would results as noted above Follows with Dr. Marina Adamson, with whom I have discussed the case with today-the patient has been scheduled to follow-up with Dr. Adamson on 12/09/16 at 11 AM for further discussion on delineation of the patient's care. SIADH Cont Salt tabs Hypothyroidism Cont Levothyroxine DVT Already on Xarelto Disposition-awaiting PT eval, anticipate DC in 24-48 hours pending clinical improvement. VS, I&O, 24H, Fishbone Vital Signs/I&O Vital Signs Date Time Temp Pulse Resp B/P (MAP) Pulse Ox O2 Delivery O2 Flow Rate FiO2 12/07/16 12:00 98.3 65 18 140/63 (88) 94 Room Air I&O- Last 24 Hours up to 6 AM 12/07/16 06:00 Intake Total 3400 ml Output Total 1100 ml Balance 2300 ml Laboratory Data 24H LABS Laboratory Tests 2 12/07/16 05:50: Anion Gap 7L, Glomerular Filtration Rate > 60.0, Blood Urea Nitrogen 10, Creatinine 0.69, Sodium Level 135L, Potassium Level 4.2#, Chloride Level 101, Carbon Dioxide Level 27, Calcium Level 7.9L CBC/BMP Laboratory Tests 12/07/16 05:50 Red Blood Count 3.26 L, Mean Corpuscular Volume 92.3, Mean Corpuscular Hemoglobin 31.0, Mean Corpuscular Hemoglobin Concent 33.6, Red Cell Distribution Width 13.9, Calcium Level 7.9 L FRANCINE GALAVIZ MD December 07, 2016 15:14
[2016-12-07] MEDS: RIVAROXABAN 15 MG TAB (XARELTO) PO SCH (16:58)
[2016-12-07] MEDS: SIMVASTATIN 20 MG TAB PO SCH (20:40)
[2016-12-08 04:00] VITALS: BP 113/58
[2016-12-08] MEDS: LEVOTHYROXINE 0.075 MG TAB (75 MCG) PO SCH (05:28)
[2016-12-08] MEDS: SLF 3 ML SYR IV SCH (05:30)
[2016-12-08 05:47] LABS: MEAN CORPUSCULAR HEMOGLOBIN 29.9 pg (27.0-33.0); MEAN CORPUSCULAR HGB CONC 32.3 g/dl (32.0-36.5); MEAN CORPUSCULAR VOLUME 92.5 fl (80.0-96.0); RED CELL DISTRIBUTION WIDTH 13.9 % (11.5-14.5); WHITE BLOOD COUNT 9.5 K/mm3 (4.0-10.0)
[2016-12-08 06:17] LABS: ANION GAP 10 MEQ/L (8-16); BLOOD UREA NITROGEN 9 MG/DL (7-18); CALCIUM LEVEL 8.3 MG/DL (8.8-10.2); CARBON DIOXIDE LEVEL 24 MEQ/L (21-32); CHLORIDE LEVEL 102 MEQ/L (98-107); CREATININE FOR GFR 0.72 MG/DL (0.55-1.02); GLOMERULAR FILTRATION RATE > 60.0 (>39); GLUCOSE, FASTING 95 MG/DL (83-110); POTASSIUM SERUM 4.1 MEQ/L (3.5-5.1); SODIUM LEVEL 136 MEQ/L (136-145)
[2016-12-08 07:53] VITALS: BP 124/68
[2016-12-08] MEDS: OMEPRAZOLE 20 MG CAP PO SCH (08:42)
[2016-12-08] MEDS: SODIUM CHLORIDE 1 GM TAB PO SCH (08:42)
[2016-12-08] MEDS: NORCO, ANEXSIA 5/325MG TABLET (HYDROcodone/ACETAMINOPHEN) PO SCH (08:42)
[2016-12-08] MEDS: METOPROLOL SUCC (TopROL XL) 50MG **XL** TAB PO SCH (08:43)
[2016-12-08] MEDS: ASCORBIC ACID 500 MG TAB PO SCH (08:43)
[2016-12-08] MEDS: SODIUM CHLORIDE 0.9% INJ 10 ML SYR IV SCH (08:43)
--- NOTE | 2016-12-08 15:03 | DS.PDOC ---
Discharge Summary General Date of Admission December 05, 2016 at 14:56 Date of Discharge 12/08/16 Discharge Summary PROCEDURES PERFORMED DURING STAY: None. ADMITTING DIAGNOSES: 1. . Decompensated congestive heart failure 2. . Stage IV adenocarcinoma of the lung with metastasis 3. . Atrial fibrillation DISCHARGE DIAGNOSES: 1. . Decompensated congestive heart failure 2. . Stage IV adenocarcinoma of the lung with metastasis 3. . Atrial fibrillation COMPLICATIONS/CHIEF COMPLAINT: Acute Respiratory Disease. HISTORY OF PRESENT ILLNESS: . 76-year-old female with a past medical history significant for stage IV adenocarcinoma of the lung with metastases to the rib, vertebral spine, and right iliac bone, systolic heart failure with ejection fraction (EF) of 35%, severe mitral regurgitation, atrial fibrillation, presented to [facility] for increased fatigue and shortness of breath. The patient states that over the last few weeks she had been becoming increasingly short of breath. She also noted the shortness of breath worsening when laying flat. She denied any complaints of fevers, chills, chest pain, or any other acute complaints. In the ER, a chest x-ray was notable for an increased right pleural effusion. In addition, the patient's physical exam and clinical findings were suggestive of decompensated congestive heart failure. The patient was started on IV Lasix and admitted to the hospitalist service for further evaluation and management. During hospitalization, the patient's shortness of breath significantly improved following diuresis. A CT scan of the chest was ordered at the request of the patient's outpatient oncologist Dr. Adamson for follow-up of the patient's underlying lung cancer. A CT scan of the chest revealed progressive pulmonary metastatic disease as well as a loculated appearing right pleural effusion with visceral and parietal pleural thickening and enhancement suggestive of metastatic pleural involvement. I did discuss these results with Dr. Adamson, who has scheduled a follow-up appointment with the patient for tomorrow 12/09/16 at 11 AM in her outpatient office. At this time, the patient states that she is feeling much better and is eager to return home. The patient was seen by physical therapy and cleared to return home. I advised patient to follow-up with her primary care physician as well as her oncologic physician as scheduled. In addition the patient is to return to the ER if her symptoms return or worsen. DISCHARGE MEDICATIONS: Please see below. ALLERGIES: Please see below. PHYSICAL EXAMINATION ON DISCHARGE: VITAL SIGNS: Please see below. General Exam: Positive: Alert, Cooperative, No Acute Distress ENT Exam: Positive: Atraumatic, Mucous membr. moist/pink Neck Exam: Negative: JVD Chest Exam: Positive: Diminished, Negative: Wheezing Heart Exam: Positive: Irregular Rhythm, Normal S1, Normal S2 Telemetry: Positive: Atrial fibrillation Abdomen Exam: Positive: Soft, Negative: Tenderness Extremity Exam: Negative: Tenderness, Swelling Psych Exam: Positive: Oriented x 3 LABORATORY DATA: Please see below. IMAGING: CT study of the chest with IV contrast: History: Evaluation of underlying cancer. The patient has a history of adenocarcinoma of the lung with mucinous differentiation. There is a history of skeletal metastases. CT contrast dose: 75 ml of intravenous Isovue [address] comparison study: October 26, 2016. CT findings: The significant change when compared with the recent prior chest CT study is that there is a moderate amount of loculated appearing right pleural fluid which has accumulated. There is multifocal enhancing visceral and parietal pleural thickening suggesting metastatic involvement. There are relatively low density mass lesions visible within atelectatic right lower lobe lung parenchyma. The right lower lobe atelectasis is new as well. The masses are not new. There are multiple pulmonary metastatic nodules in the right and left lung which appear to be increased in size significantly in the interval since the CT study done 5 weeks ago. There are no definite new pulmonary nodules although the progression in size is fairly rapid. There are precarinal lymph nodes which are enlarged and which have increased in size as well in the interval since the study done 5 weeks ago. Left precarinal lymph node which previously measured 1.1 cm on 10/26/2016 now measures 1.4 cm. A node adjacent to this to the right of midline now measures 12 mm in short axis dimension, previously 7 mm. There are bilateral hilar lymph nodes which are a little larger as well. There are two or three small anterior mediastinal nodes. Multiple clips are seen post cholecystectomy. There is evidence of right sided hydronephrosis again noted unchanged. There are scattered sclerotic changes in the vertebral column in the thoracic spine. These are unchanged. Impression: 1. Progressive pulmonary metastatic disease. 2. New moderate loculated appearing right pleural effusion with visceral and parietal pleural thickening and enhancement suggesting metastatic pleural involvement. CHEST, TWO VIEWS: Two views of the chest are performed and compared to prior CT of 10/26/2016 and chest radiographs of 06/16/2016. There is increased right pleural fluid and basilar infiltrate/atelectasis. Confluent nodular opacities are seen laterally at the left base. Right suprahilar nodular opacity is seen as on CT exam. There is calcification and tortuosity of the thoracic aorta. Right MediPort catheter is seen. Tip is in the superior vena cava. There are degenerative changes of the spine. IMPRESSION: Increased right pleural effusion with basilar atelectasis/infiltrate. PROGNOSIS: Medically stable ACTIVITY: As tolerated. DIET: . 2 g low sodium diet DISCHARGE PLAN: DISPOSITION: 01 Home, Self-Care. DISCHARGE INSTRUCTIONS: 1. . Follow-up with oncology appointment on 12/09/16 at 11 AM 2. . Follow-up with primary care physician within one to 2 weeks 3. . Return to ER if symptoms return or worsen DISCHARGE CONDITION: Stable. TIME SPENT ON DISCHARGE: Greater than 30 minutes. Vital Signs/I&Os Vital Signs Date Time Temp Pulse Resp B/P (MAP) Pulse Ox O2 Delivery O2 Flow Rate FiO2 12/08/16 09:12 20 12/08/16 08:42 Room Air 12/08/16 07:53 97.6 64 124/68 (86) 94 I&O- Last 24 Hours up to 6 AM 12/08/16 05:59 Intake Total 2160 ml Output Total 1500 ml Balance 660 ml Laboratory Data Labs 24H Laboratory Tests 2 12/08/16 05:28: Anion Gap 10, Glomerular Filtration Rate > 60.0, Blood Urea Nitrogen 9, Creatinine 0.72, Sodium Level 136, Potassium Level 4.1, Chloride Level 102, Carbon Dioxide Level 24, Calcium Level 8.3L CBC/BMP Laboratory Tests 12/08/16 05:28 Red Blood Count 3.47 L, Mean Corpuscular Volume 92.5, Mean Corpuscular Hemoglobin 29.9, Mean Corpuscular Hemoglobin Concent 32.3, Red Cell Distribution Width 13.9, Calcium Level 8.3 L Discharge Medications Scheduled Acetaminophen/Hydrocodone (Hydrocodone/Acetaminophen 5-325 mg) 1 Tab Tab, 1 TAB PO TID, (Reported) 0700, 1700, 2300 Ascorbic Acid (Ascorbic Acid) 500 Mg Tab, 1,000 MG PO DAILY, (Reported) TAKES AT NOON Cholecalciferol (D 5000) 5,000 Unit Tab, 5,000 UNIT PO DAILY, (Reported) TAKES AT NOON Furosemide (Furosemide) 20 Mg Tab, 20 MG PO BID, (Reported) Levothyroxine Sodium (Synthroid) 75 Mcg Tab, 75 MCG PO DAILY, (Reported) Metoprolol Succinate (Metoprolol Succinate ER) 100 Mg Tab, 100 MG PO BID, ( Reported) Omeprazole (Omeprazole) 40 Mg Cap, 40 MG PO DAILY, (Reported) Potassium Chloride (Klor-Con M20) 20 Meq Tabcr, 20 MEQ PO BID, (Reported) Rivaroxaban (Xarelto) 15 Mg Tab, 15 MG PO QPM, (Reported) Simvastatin (Simvastatin) 20 Mg Tab, 20 MG PO QHS, (Reported) Sodium Chloride (Sodium Chloride) 1 Gm Tab, 1 GM PO DAILY, (Reported) Scheduled PRN (Nitroglycerin Lingual) 0.4 Mg/[place] Spr, 0.4 MG SL PRN PRN for CHEST PAIN, ( Reported) Ondansetron (Zofran Odt) 4 Mg Tab, 4 MG PO for NAUSEA OR VOMITING, (Reported) Prochlorperazine (Prochlorperazine Maleate) 5 Mg Tab, 10 MG PO for NAUSEA OR VOMITING, (Reported) Allergies Coded Allergies: Thiazide-Type Diuretics (Verified Adverse Reaction, Intermediate, hyponatremia, 04/04/15) FRANCINE GALAVIZ MD December 08, 2016 15:03
== END 2016-12-08 12:44 | disposition home or self-care (01) | DRG 292 ==
LOC: M ED 12:43 → M ED INP 14:56 → M PCU 17:54
PROVIDERS: ADMIT Internal Medicine; ATTEND Internal Medicine
DX: I11.0 Hypertensive heart disease with heart failure (principal); E22.2 Syndrome of inappropriate secretion of antidiuretic hormone; C34.90 Malignant neoplasm of unspecified part of unspecified bronchus or lung; C79.51 Secondary malignant neoplasm of bone; J91.0 Malignant pleural effusion; I50.23 Acute on chronic systolic (congestive) heart failure; E03.9 Hypothyroidism, unspecified; I48.91 Unspecified atrial fibrillation; Z79.899 Other long term (current) drug therapy; Z79.01 Long term (current) use of anticoagulants; Z88.8 Allergy status to other drugs, medicaments and biological substances; Z92.21 Personal history of antineoplastic chemotherapy; Z90.49 Acquired absence of other specified parts of digestive tract; Z90.710 Acquired absence of both cervix and uterus; Z90.2 Acquired absence of lung [part of]; Z87.891 Personal history of nicotine dependence

== ENCOUNTER → 2016-12-27 | Outpatient (CLI) | payer MEDICARE, MEDICAID ==
[~2016-12-27] MED LIST changes: +NITR0.1S SL; +OMEP40CA2 PO; +POTA20TA PO; +PROC5TA PO
--- NOTE | 2016-12-28 09:08 | REP ---
MR BRAIN WITHOUT AND WITH CONTRAST: HISTORY: Vertigo. CONTRAST: ProHance 5 mL. COMPARISON: 08/03/2016 The 2 mm focus of enhancement seen in the right frontal lobe in the previous examination is not seen in the present examination. A 6 mm enhancing nodule is present in the right temporal lobe. A 3 mm enhancing nodule is present in the left frontal lobe. A 6 mm ring enhancing lesion is present in the left frontal lobe. A 3 mm enhancing nodule is present in the medial left parietal lobe. A 6 mm ring enhancing lesion is present in the left parietal lobe at the vertex. There is no surrounding edema or mass effect. A small focus of increased signal intensity on T2-weighted images is present in the left cerebellum. This represents an old lacunar infarction. Areas of increased signal intensity on T2-weighted images are present in the periventricular and subcortical white matter. This represents small vessel ischemic disease. There is no intraparenchymal hemorrhage, acute infarct or midline shift. The ventricular system and cortical sulci are dilated consistent with mild volume loss. There is no extracerebral collection. The sinuses are clear. Several sebaceous cysts are present in the subgaleal soft tissue. IMPRESSION: 1. There are small enhancing nodules and ring enhancing lesions in the right temporal, left frontal and left parietal lobes. The previously noted 2 mm enhancing focus in the right frontal lobe is not see in the present examination. ? 2. 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 3. Small vessel ischemic disease. 4. Mild volume loss. Signed by Rogelio Rodrigez MD 12/28/2016 09:42 A
== END ==
LOC: M RAD 17:30
PROVIDERS: ATTEND Internal Medicine Medical Oncology
DX: R42 Dizziness and giddiness (principal); I73.9 Peripheral vascular disease, unspecified; G93.9 Disorder of brain, unspecified; R90.89 Other abnormal findings on diagnostic imaging of central nervous system
CPT/HCPCS: 70553; A9576

== ENCOUNTER → 2016-12-28 | Outpatient (CLI) | payer MEDICARE, MEDICAID ==
[~2016-12-28] MED LIST changes: +ISOVUE-370 76% 100ML VIAL (Q9967) As Ordered ONE
--- NOTE | 2016-12-28 13:32 | REP ---
CT of the chest with IV contrast: Comparisons are 12/07/2016, 10/26/2016, and 08/18/2016. There are multiple lung masses, all of which have significantly increased in size from the recent prior studies. There is now pleural thickening bilaterally in the posterior inferior lung alegre compatible with pleural metastases. This was present for the first time for on 17 on the left and 12/07/2016. On the right and the has significantly increased from the prior studies. There is a large loculated pleural fluid collection on the right, not significantly changed from 12/07/2016. There are multiple large anterior and middle mediastinal nodes, significantly increased from 10/26/2016 and increased in size from 12/07/2016. There is bilateral hilar adenopathy, also increased in size. Thoracic aorta is unremarkable. Cardiac size is normal. In the upper abdomen I suspect there is right hydronephrosis. There are surgical clips in the gallbladder fossa. Impression: Rapidly enlarging pulmonary nodules and pulmonary nodules increasing in number. Rapid appearance of bilateral pleural thickening compatible with pleural metastases. Rapid appearing large loculated right pleural fluid collection. Enlarging mediastinal and hilar adenopathy. Right hydronephrosis, similar to the prior studies. Signed by Michele Esquivel MD 12/28/2016 01:23 P
== END ==
LOC: M RAD 12:42
PROVIDERS: ATTEND Internal Medicine Medical Oncology
DX: C34.90 Malignant neoplasm of unspecified part of unspecified bronchus or lung (principal); R63.4 Abnormal weight loss; R59.0 Localized enlarged lymph nodes; R91.8 Other nonspecific abnormal finding of lung field
CPT/HCPCS: 71260; Q9967